=== PATIENT | male | born 1970 | race Caucasian/White ===

== ENCOUNTER 2022-05-08 15:19 | Emergency (ER) | payer OTHER ==
[~2022-05-08] VITALS: Ht 182.8 cm; Wt 113.4 kg
[2022-05-08 16:17] LABS: BASO % 0.6 % (0.0-1.0); EOS # 0.1 10*3/uL (0.0-0.4); EOS % 0.9 % (1.0-4.0); LYMPH # 2.4 10*3/uL (1.3-4.4); LYMPH % 38.3 % (27.0-41.0); MEAN CELL VOLUME 99.3 fl (80.0-94.0); MEAN CORPUSCULAR HGB 33.5 pg (27.0-31.0); MEAN CORPUSCULAR HGB CONC 33.8 g/dl (33.0-37.0); MEAN PLATELET VOLUME 9.8 fl (9.6-12.3); MONO # 0.5 10*3/uL (0.1-1.0); MONO % 7.8 % (3.0-9.0); NEUT # 3.3 10*3/uL (2.3-7.9); NEUT % 51.8 % (47.0-73.0); PLATELET COUNT AUTOMATED 208 10*3/uL (130-400); RED BLOOD COUNT 4.03 10*6/uL (4.50-5.90); RED CELL DISTRI WIDTH 12.6 % (0-14.5); WHITE BLOOD COUNT 6.3 10*3/uL (4.8-10.8)
[2022-05-08 16:34] LABS: ALKALINE PHOSPHATASE 51 U/L (45-117); BUN 7 mg/dl (7-24); CHLORIDE 97 mmol/L (98-107); CREATININE 1.08 mg/dL (0.70-1.30); LIPASE 210 U/L (73-393); POTASSIUM 3.9 mmol/L (3.5-5.1); SGOT/AST 61 IU/L (3-35); SGPT/ALT 39 U/L (12-78); SODIUM 129 mmol/L (136-145); TOTAL PROTEIN 7.3 gm/dL (6.4-8.2)
[2022-05-08 16:43] LABS: BILIRUBIN Negative (Negative); BLOOD 2+ (Negative); CLARITY Clear (Clear); COLOR Orange (Yellow); GLUCOSE Negative (Negative); KETONE Negative (Negative); LEUKO ESTERASE Negative (Negative); NITRITE Negative (Negative); SPECIFIC GRAVITY <= 1.005 (1.001-1.030); UROBILINOGEN 0.2 E.U./dl (0.0-1.0)
[2022-05-08 17:06] LABS: EPITHELIAL CELLS 0-2; WBC 0-2 wbc/hpf (0-5)
[2022-05-08 17:07] LABS: BACTERIA 1+
[2022-05-10] MEDS ORDERED: HYDROCODONE-AC1 EAC1 PO (19:42)
== END 2022-05-08 18:16 | disposition home or self-care (01) ==
LOC: ED 15:19
PROVIDERS: Emergency Medicine
DX: S39.012A Strain of muscle, fascia and tendon of lower back, initial encounter (principal); E87.1 Hypo-osmolality and hyponatremia; V43.62XA Car passenger injured in collision with other type car in traffic accident, initial encounter; Y93.89 Activity, other specified; Y92.89 Other specified places as the place of occurrence of the external cause; Y99.8 Other external cause status